=== PATIENT | male | born 1955 | race Caucasian/White ===

== ENCOUNTER 2018-04-08 04:11 | Emergency (ER) | payer OTHER ==
[~2018-04-08] VITALS: Ht 177.8 cm; Wt 79.4 kg
[2018-04-08] MEDS ORDERED: ATORVASTATIN CA20 MG NG (04:19)
[2018-04-08] MEDS ORDERED: METOPROLOL TAR100 M1 NG (04:19)
[2018-04-08] MEDS ORDERED: LISINOPRIL10 MG NG (04:19)
[2018-04-08] MEDS ORDERED: AMLODIPINE BESY10 MG NG (04:19)
[2018-04-08] MEDS ORDERED: BISACODYL5 MG RECTAL (04:19)
[2018-04-08] MEDS ORDERED: MINERAL OIL EN133 ML RC (04:19)
[2018-04-08] MEDS ORDERED: DOCUSATE SODIU250 MG NG (04:19)
[2018-04-08] MEDS ORDERED: SORBITOL2000 ML NG (04:22)
[2018-04-08] MEDS ORDERED: VITAMIN B-1100 MG NG (04:22)
[2018-04-08] MEDS ORDERED: MULTI-DELYN237 ML NG (04:22)
[2018-04-08] MEDS ORDERED: VITAMIN B-122500 MCG NG (04:22)
[2018-04-08] MEDS ORDERED: SENNOSIDES8.6 MG NG (04:22)
--- NOTE | 2018-04-08 04:27 | Emergency Room Report ---
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 Patient unable to give any history. EMS report and medical record state patient's baseline in terms of his mental status and no further history was given regarding his fever or surrounding events. Allergies: Coded Allergies: NSAIDS (NON-STEROIDAL ANTI-INFLAMMA (Verified Allergy, Unknown, 04/08/18) Patient History Limited by: medical condition Past Medical History: see triage record Reviewed Nursing Documentation: PMH: Agreed; PSxH: Agreed Nursing Documentation-PMH Hx Hypertension: Yes - dysphagia Hx Cerebrovascular Accident: Yes - intracerebral hemorrhage, TIA, Cerebral infarction Review of Systems All Other Systems: negative except mentioned in HPI Physical Exam Vital Signs Date Time Temp Pulse Resp B/P (MAP) Pulse Ox O2 Delivery O2 Flow Rate FiO2 04/08/18 04:09 98.6 106 22 152/78 96 Room Air 98.6 Sp02 EP Interpretation: reviewed, normal General Appearance: no apparent distress, alert, non-toxic Head: normocephalic Eyes: bilateral eye normal inspection, bilateral eye PERRL, bilateral eye EOMI ENT: normal ENT inspection, hearing grossly normal, normal pharynx, no angioedema, normal voice, moist mucus membranes, other - nasal feeding tube in place, no nasal purulence/discharge/erythema/irritation seen Neck: normal inspection, full range of motion, supple, supple/symm/no masses Respiratory: chest non-tender, lungs clear, normal breath sounds, no rhonchi - transmitted upper airway gurgling sounds but no robert lower airway rhonchi, chest symmetrical, palpation of chest normal Cardiovascular #1: normal peripheral pulses, regular rate, rhythm, no edema, no gallop, no murmur, no rub, tachycardia Cardiovascular #2: 2+ radial (R), 2+ radial (L) Gastrointestinal: normal inspection, non tender, soft, no mass, no guarding, no rebound Rectal: normal exam, deferred Genitourinary: normal inspection, no CVA tenderness, penis normal, scrotum normal Musculoskeletal: back normal, non-tender, no calf tenderness Neurologic: alert, other - moves L>R extremities spontaneously Psychiatric: judgement/insight normal, memory normal, mood/affect normal, no suicidal/homicidal ideation Skin: normal color, no rash, warm/dry, normal turgor Lymphatic: no adenopathy Medical Decision Making Diagnostic Impression: Primary Impression: Fever of unknown origin ER Course Upon arrival patient treated with sepsis protocol, including 30 mL per. Fluid bolus, basic labs, blood cultures, lactic acid, broad-spectrum antibiotics, [place] catheter placed, chest x-ray obtained, EKG, monitor, but patient without fever here so no antipyretics given. Will need admission, patient does not appear to be in shock, he is DNR/DNI status, will admit to telemetry pending results. Patient now found to have fever per RN, so rectal tylenol given. Upon re- evaluation, focused sepsis exam performed, and patient still hemodynamically stable. CXR without robert consolidation. Troponin 0.08, given rectal aspirin, no EKG changes of ischemia. Patient's urinalysis does show 1+ leukocyte esterase, this may be the source of fever. His abdomen is soft, nondistended, nontender, but it is difficult to examine given the fact that he is nonverbal but he does not appear to wince in pain with abdomen exam. I spoke with [facility] Dr. Tony rCowder, he authorized admission via transfer to a [place] facility, authorization number [id number] EKG Diagnostic Results EKG Time: 04:24 EP Interpretation: No ST segment changes no T-wave inversions Rate: tachycardiac Rhythm: NSR ST Segments: no acute changes ASA given to the pt in ED: No Rhythm Strip Diag. Results Rhythm Strip Time: 04:26 EP Interpretation: yes Rate: 116 Rhythm: NSR, no PVC's, no ectopy Chest X-Ray Diagnostic Results Chest X-Ray Diagnostic Results : Chest X-Ray Ordered: Yes # of Views/Limited/Complete: 1 View Indication: Other EP Interpretation: Yes Interpretation: no consolidation, no effusion, no pneumothorax, no acute cardiopulmonary disease Impression: No acute disease Electronically Signed by: Joesph Davis MD Last Vital Signs Date Time Temp Pulse Resp B/P (MAP) Pulse Ox O2 Delivery O2 Flow Rate FiO2 04/08/18 04:09 98.6 106 22 152/78 96 Room Air 98.6 [facility] Condition: Stable Signed Out To: Dr. Tony Crowder, [facility], auth # [id number] JOESPH DAVIS M.D 23, 2018 04:27
[2018-04-08] MEDS ORDERED: Vancomycin 1 GM in NS 275 ML IV ONE (04:30)
[2018-04-08 05:04] LABS: ANION GAP 10 mmol/L (5-15); BLOOD UREA NITROGEN 48 mg/dL (7-18); CALCIUM 9.7 MG/DL (8.5-10.1); CARBON DIOXIDE 28 MMOL/L (21-32); CHLORIDE 106 MMOL/L (98-107); CREATININE 1.3 MG/DL (0.55-1.30); POTASSIUM 4.3 MMOL/L (3.5-5.1); SODIUM 144 MMOL/L (136-145)
[2018-04-08 05:07] LABS: INR 1.1 (0.9-1.1)
[2018-04-08 05:08] LABS: HEMATOCRIT 47.9 % (42.0-52.0); HEMOGLOBIN 15.9 G/DL (14.2-18.0); MEAN CORPUSCULAR VOLUME 92 FL (80-99); PLATELET COUNT 439 K/UL (150-450); RED BLOOD COUNT 5.19 M/UL (4.70-6.10)
[2018-04-08 05:09] LABS: WHITE BLOOD COUNT 24.6 K/UL (4.8-10.8)
[2018-04-08] MEDS ORDERED: Acetaminophen 650 MG SUPP RECTAL ONE (05:15)
[2018-04-08 05:16] VITALS: BP 127/84
[2018-04-08 05:18] LABS: ALANINE AMINOTRANSFERASE 98 U/L (12-78); ALBUMIN 3.3 G/DL (3.4-5.0); ALBUMIN/GLOBULIN RATIO 0.7 (1.0-2.7); ALKALINE PHOSPHATASE 70 U/L (46-116); ASPARTATE AMINO TRANSFERASE 43 U/L (15-37); BILIRUBIN,TOTAL 0.4 MG/DL (0.2-1.0); CKMB < 0.5 NG/ML (0.0-3.6); CREATINE KINASE 52 U/L (26-308)
[2018-04-08 05:19] LABS: APPEARANCE,URINE CLEAR; BILIRUBIN, URINE NEGATIVE (NEGATIVE); GLUCOSE, URINE (UA) NEGATIVE (NEGATIVE); KETONES,URINE NEGATIVE (NEGATIVE); LEUKOCYTE ESTERASE ,URINE 1+ (NEGATIVE); NITRITE,URINE NEGATIVE (NEGATIVE); PH,URINE 7 (4.5-8.0); PROTEIN,URINE 2+ (NEGATIVE); UROBILINOGEN,URINE 1 MG/DL (0.0-1.0)
[2018-04-08 05:20] LABS: COLOR,URINE YELLOW
[2018-04-08] MEDS ORDERED: Aspirin Baby 81mg ORAL ONE (05:45)
[2018-04-08 06:09] VITALS: BP 118/78
--- NOTE | 2018-04-08 06:11 | Diagnostic Imaging Report ---
EXAM: XR Chest, 1 View CLINICAL HISTORY: Tachycardia TECHNIQUE: Frontal view of the chest. COMPARISON: No relevant prior studies available. FINDINGS: Lungs: No focal consolidation. Pleural space: No pleural effusion or pneumothorax. Heart: Unremarkable. No cardiomegaly. Mediastinum: Unremarkable. Bones/joints: Unremarkable. Tubes, lines and devices: Enteric tube terminates in the distal gastric antrum versus proximal duodenum. Upper abdomen: Elevated right hemidiaphragm. IMPRESSION: 1. Enteric tube terminates in the distal gastric antrum versus proximal duodenum. 2. No acute cardiopulmonary process.
[2018-04-08 07:06] VITALS: BP 118/78
[2018-04-08 07:51] VITALS: BP 107/68
--- NOTE | 2018-04-12 15:30 | Cardiology Report ---
APPROVED REPORT EKG Measurement Heart [id number] Sinus tachycardia Otherwise normal ECG
== END 2018-04-08 08:02 | disposition short-term general hospital (02) ==
LOC: EDBD 04:11 → EMR 04:32
DX: R50.9 Fever, unspecified (principal); I69.120 Aphasia following nontraumatic intracerebral hemorrhage; R13.10 Dysphagia, unspecified
CPT/HCPCS: 36415; 71045; 80053; 81003; 82550; 82553; 83605; 83735; 83880; 84484; 85007; 85025; 85610; 85730; 87040; 87181; 93005; 96360; 96365; 96366; 99285; J1956; J3370; J7050